=== PATIENT | female | born 1995 | race Caucasian/White ===

== ENCOUNTER → 2023-08-26 | Outpatient (CLI) | payer BC, MEDICARE ==
--- NOTE | 2023-08-26 10:46 | USB ---
Reason for Exam: Clinical finding. Technique: Method: Targeted. Findings: The upper outer quadrant of the left breast, the axilla of the left breast and the retroareolar of the left breast were scanned. Technique utilized:US breast limited LT Image; Ultrasound imaging of: Area of concern, retroareolar region and axilla. No evidence for organizing fluid collection or mass. Overall Assessment: Negative, BI-RAD 1 Management: Screening Mammogram of both breasts at age 41. A clinical breast exam by your physician is recommended on an annual basis and results should be correlated with mammographic findings. This exam should not preclude additional follow-up of suspicious palpable abnormalities. Results were given to the patient verbally at the time of exam. Electronically signed and approved by: Maxime Galeana DO
== END | disposition home or self-care (01) ==
LOC: RADUSWWP 10:18
PROVIDERS: ATTEND Family Medicine
DX: N63.20 Unspecified lump in the left breast, unspecified quadrant (principal)

== ENCOUNTER 2023-12-24 03:05 | Inpatient (IN) | payer BC ==
[2023-12-24] MEDS: METOCLOPRAMIDE 5 MG/ML 2 ML VIAL IVP STA (03:45)
[2023-12-24] MEDS: SODIUM CHLORIDE 0.9% 1,000 ML IV STA (03:46)
--- NOTE | 2023-12-24 03:46 | ED ---
Abdominal Pain HPI - General Source: patient Mode of arrival: ambulatory Limitations: no limitations <Dru Arana - Last Filed: 12/24/23 19:06> <Janine Montemayor - Last Filed: 12/24/23 23:19> - General Chief Complaint: Abdominal Pain Stated Complaint: Abd pain Time Seen by Provider: 12/24/23 03:19 - History of Present Illness Initial Comments: 28-year-old female presenting with chief complaint of right upper quadrant pain. Patient is currently 22 weeks . Patient has had sharp pain to the right upper quadrant has a known history of gallstones. She has not been able to control the pain with medications at home. She is having no lower abdominal pain or vaginal bleeding. She is having nausea with no vomiting. She admits to diarrhea. She is also having URI-like symptoms. (Dru Arana) Patient originally seen by midlevel provider. Patient was signed out to me pending laboratory studies. I evaluated the patient myself. She reports to having a known diagnosis of gallbladder sludge. She has had 3-4 episodes of acute pain. The last episode was 3 weeks ago. Patient is currently not on any medications for the symptoms. She had sudden onset of pain a few hours prior to coming into the hospital. States that she was trying to wait it out at home however this episode lasted longer than any of the others. She has nausea without vomiting. Patient is currently 22 weeks and denies any lower abdominal symptoms. No bleeding. Denies any headache or visual changes. No history of hypertension. No other alleviating, precipitating modifying factors (Janine Montemayor) - Related Data Home Medications Medication Instructions Recorded Confirmed Aspirin EC [Ecotrin Low Dose] 81 mg PO DAILY 12/24/23 12/24/23 Bpo-Xmvh-Csyco Acid 1 cap PO DAILY 12/24/23 12/24/23 [-U Capsule (formulary)] Vitamin D3(Unknown Dose) 1 tab PO DAILY 12/24/23 12/24/23 Allergies Allergy/AdvReac Type Severity Reaction Status Date / Time No Known Allergies Allergy Verified 12/24/23 09:24 Review of Systems ROS Other: All systems not noted in ROS Statement are negative. <Dru Arana - Last Filed: 12/24/23 19:06> ROS Other: All systems not noted in ROS Statement are negative. <Janine Montemayor Carmelita - Last Filed: 12/24/23 23:19> ROS Statement: Those systems with pertinent positive or pertinent negative responses have been documented in the HPI. Past Medical History Past Medical History: No Reported History History of Any Multi-Drug Resistant Organisms: None Reported Past Surgical History: No Surgical Hx Reported Smoking Status: Never smoker Past Alcohol Use History: None Reported Past Drug Use History: None Reported - Past Family History Mother Family Medical History: No Reported History <Dru Arana - Last Filed: 12/24/23 19:06> General Exam Limitations: no limitations General appearance: alert, in no apparent distress Head exam: Present: atraumatic, normocephalic Eye exam: Present: normal appearance, EOMI Neck exam: Present: normal inspection Respiratory exam: Present: normal lung sounds bilaterally. Absent: respiratory distress, wheezes, rales, rhonchi, stridor Cardiovascular Exam: Present: regular rate, normal rhythm, normal heart sounds. Absent: systolic murmur, diastolic murmur, rubs, gallop, clicks GI/Abdominal exam: Present: soft, tenderness. Absent: distended, guarding, rebound, rigid Neurological exam: Present: alert, oriented X3 Psychiatric exam: Present: normal affect, normal mood Skin exam: Present: warm, dry <Dru Arana - Last Filed: 12/24/23 19:06> Course Vital Signs 12/24/23 12/24/23 12/24/23 03:07 04:16 04:46 Temperature 97.3 F L Pulse Rate 99 72 Respiratory 22 16 Rate Blood Pressure 143/97 130/84 O2 Sat by Pulse 100 100 98 Oximetry 12/24/23 12/24/23 12/24/23 04:52 05:00 05:25 Temperature Pulse Rate 94 82 Respiratory 16 17 Rate Blood Pressure 111/72 111/72 119/80 O2 Sat by Pulse 98 100 Oximetry 12/24/23 12/24/23 12/24/23 06:00 06:47 07:00 Temperature Pulse Rate 84 Respiratory 17 Rate Blood Pressure 125/90 125/85 125/85 O2 Sat by Pulse 95 Oximetry 12/24/23 12/24/23 08:00 09:00 Temperature Pulse Rate 83 Respiratory 17 Rate Blood Pressure 119/69 117/73 O2 Sat by Pulse 98 Oximetry Medical Decision Making - Lab Data Result diagrams: 12/24/23 03:37 12/24/23 03:37 <Dru Arana - Last Filed: 12/24/23 19:06> - Lab Data Result diagrams: 12/24/23 03:37 12/24/23 03:37 <Janine Montemayor Carmelita - Last Filed: 12/24/23 23:19> - Medical Decision Making Was pt. sent in by a medical professional or institution (, PA, PRIMARY CARE NURSE PRACTITIONER, urgent care, hospital, or [facility]...) When possible be specific @ -No Did you speak to anyone other than the patient for history (EMS, parent, family, police, friend...)? What history was obtained from this source @ -No Did you review nursing and triage notes (agree or disagree)? Why? @ -I reviewed and agree with nursing and triage notes Were old charts reviewed (outside hosp., previous admission, EMS record, old EKG, old radiological studies, urgent care reports/EKG's, [facility] records)? Report findings @ -No old charts were reviewed Differential Diagnosis (chest pain, altered mental status, abdominal pain women, abdominal pain men, vaginal bleeding, weakness, fever, dyspnea, syncope, headache, dizziness, GI bleed, back pain, seizure, CVA, palpatations, mental health, musculoskeletal)? @ -Differential Abdominal Pain Women: Appendicitis, Cholecystitis, diverticulosis, ischemic bowel, pancreatitis, hepatitis, UTI, gastroenteritis, AAA, incarcerated hernia, bowel obstruction, constipation, inflammatory bowel, hepatitis, peptic ulcer disease, splenic infarction, perforated viscus, vulvitis, ovarian torsion, PID, kidney stone, placenta abruption, this is not meant to be an all-inclusive list EKG interpreted by me (3pts min.). @ -Not done X-rays interpreted by me (1pt min.). @ -None done CT interpreted by me (1pt min.). @ -None done U/S interpreted by me (1pt. min.). @ -Yes and demonstrates signs of possible acute cholecystitis. Gallbladder wall is thickened. Biliary sludge What testing was considered but not performed or refused? (CT, X-rays, U/S, labs)? Why? @ -None What meds were considered but not given or refused? Why? @ -None Did you discuss the management of the patient with other professionals (professionals i.e. DrMihir, PA, PRIMARY CARE NURSE PRACTITIONER, lab, RT, psych nurse, social worker delinquency prevention, jig hand, teacher, peace officer, pillowcase maker)? Give summary @ -Spoke with Dr. Carvalho who is agreeable to admit the patient Was smoking cessation discussed for >3mins.? @ -No Was critical care preformed (if so, how long)? @ -No Were there social determinants of health that impacted care today? How? (Homelessness, low income, unemployed, alcoholism, drug addiction, transportation, low edu. Level, literacy, decrease access to med. care, retirement, rehab)? @ -Patient is currently in her second trimester of Was there de-escalation of care discussed even if they declined (Discuss DNR or withdrawal of care, Hospice)? DNR status @ -No What co-morbidities impacted this encounter? (DM, HTN, Smoking, COPD, CAD, Cancer, CVA, ARF, Chemo, Hep., AIDS, mental health diagnosis, sleep apnea, morbid obesity)? @ -None Was patient admitted / discharged? Hospital course, mention meds given and route, prescriptions, significant lab abnormalities, going to OR and other pertinent info. @ -Upon arrival patient was seen and evaluated in room 14. Thorough history and physical exam was performed. IV access was established and laboratory studies are conducted. Patient is in a significant amount of pain. She was given 4 mg of morphine after the risks of the medication were discussed with the patient in regards to her unborn baby. She was agreeable to pain meds. While the laboratory studies are running, the patient continues to have pain and therefore was given a second dose of pain medications. Laboratory studies returned and are discussed with the patient. I do feel that the patient to have a gallbladder ultrasound at this time for which she was agreeable. Patient administered third dose of pain medication however was given 1 mg of Dilaudid as the 2 doses of morphine did not suffice. Ultrasound does demonstrate acute cholecystitis. There is some right-sided hydronephrosis which is likely normal considering that the patient is in second trimester . Patient does require surgical evaluation for cholecystitis. Patient is requesting Dr. Carvalho. Dr. Carvalho is not on-call but is agreeable to consult on the patient. He does give several treatment options. I did discuss these with the patient. She was agreeable to admission to our facility on antibiotics. Dr. Carvalho will take the admission with DAM TENDER ASSISTANT to consult. I did perform a bedside ultrasound which did demonstrate positive heart tones and movement. Patient was admitted to the floor in stable condition Undiagnosed new problem with uncertain prognosis? @ -Yes Drug Therapy requiring intensive monitoring for toxicity (Heparin, Nitro, Insulin, Cardizem)? @ -No Were any procedures done? @ -Bedside obstetric ultrasound Diagnosis/symptom? @ -Acute right upper quadrant abdominal pain, acute cholecystitis, second trimester Acute, or Chronic, or Acute on Chronic? @ -Acute Uncomplicated (without systemic symptoms) or Complicated (systemic symptoms)? @ -Complicated Side effects of treatment? @ -No Exacerbation, Progression, or Severe Exacerbation? @ -No Poses a threat to life or bodily function? How? (Chest pain, [place], VA, pneumonia, PE, COPD, DKA, ARF, appy, cholecystitis, CVA, Diverticulitis, Homicidal, Suicidal, threat to staff... and all critical care pts) @ -No (Janine Montemayor) - Lab Data Lab Results 12/24/23 12/24/23 12/24/23 Range/Units 03:37 03:37 03:37 WBC 11.2 H (3.8-10.6) k/uL RBC 4.17 (3.80-5.40) m/uL Hgb 12.7 (11.4-16.0) gm/dL Hct 38.2 (34.0-46.0) % MCV 91.5 (80.0-100.0) fL MCH 30.5 (25.0-35.0) pg MCHC 33.3 (31.0-37.0) g/dL RDW 12.6 (11.5-15.5) % Plt Count 262 (150-450) k/uL MPV 7.9 Neutrophils % 81 % Lymphocytes % 13 % Monocytes % 5 % Eosinophils % 1 % Basophils % 0 % Neutrophils # 9.0 H (1.3-7.7) k/uL Lymphocytes # 1.4 (1.0-4.8) k/uL Monocytes # 0.5 (0-1.0) k/uL Eosinophils # 0.1 (0-0.7) k/uL Basophils # 0.0 (0-0.2) k/uL Sodium 135 L (137-145) mmol/L Potassium 3.8 (3.5-5.1) mmol/L Chloride 104 (98-107) mmol/L Carbon Dioxide 20 L (22-30) mmol/L Anion Gap 11 mmol/L BUN 5 L (7-17) mg/dL Creatinine 0.47 L (0.52-1.04) mg/dL Est GFR (CKD-EPI)AfAm >90 (>60 ml/min/1.73 sqM) Est GFR (CKD-EPI)NonAf >90 (>60 ml/min/1.73 sqM) Glucose 128 H (74-99) mg/dL Plasma Lactic Acid Perry (0.7-2.0) mmol/L Uric Acid 4.3 (3.7-7.4) mg/dL Calcium 8.8 (8.4-10.2) mg/dL Total Bilirubin 0.7 (0.2-1.3) mg/dL AST 38 H (14-36) U/L ALT 22 (4-34) U/L Alkaline Phosphatase 81 (38-126) U/L Lactate Dehydrogenase 350 H (120-246) U/L Total Protein 7.5 (6.3-8.2) g/dL Albumin 4.0 (3.5-5.0) g/dL Amylase 59 (30-110) U/L Lipase 71 (23-300) U/L Urine Color Yellow Urine Appearance Cloudy H (Clear) Urine pH 6.0 (5.0-8.0) Ur Specific [place] 1.030 (1.001-1.035) Urine Protein 1+ H (Negative) Urine Glucose (UA) Trace H (Negative) Urine Ketones Negative (Negative) Urine Blood Negative (Negative) Urine Nitrite Negative (Negative) Urine Bilirubin Negative (Negative) Urine Urobilinogen 2.0 (<2.0) mg/dL Ur Leukocyte Esterase Negative (Negative) Urine WBC 3 (0-5) /hpf Ur Squamous Epith Cells 13 H (0-4) /hpf Calcium Oxalate Crystal Moderate H (None) /hpf Urine Bacteria Moderate H (None) /hpf Hyaline Casts 10 H (0-2) /lpf Urine Mucus Many H (None) /hpf Influenza Type A (PCR) (Not Detectd) Influenza Type B (PCR) (Not Detectd) RSV (PCR) (Not Detectd) SARS-CoV-2 (PCR) (Not Detectd) 12/24/23 12/24/23 Range/Units 03:37 03:39 WBC (3.8-10.6) k/uL RBC (3.80-5.40) m/uL Hgb (11.4-16.0) gm/dL Hct (34.0-46.0) % MCV (80.0-100.0) fL MCH (25.0-35.0) pg MCHC (31.0-37.0) g/dL RDW (11.5-15.5) % Plt Count (150-450) k/uL MPV Neutrophils % % Lymphocytes % % Monocytes % % Eosinophils % % Basophils % % Neutrophils # (1.3-7.7) k/uL Lymphocytes # (1.0-4.8) k/uL Monocytes # (0-1.0) k/uL Eosinophils # (0-0.7) k/uL Basophils # (0-0.2) k/uL Sodium (137-145) mmol/L Potassium (3.5-5.1) mmol/L Chloride (98-107) mmol/L Carbon Dioxide (22-30) mmol/L Anion Gap mmol/L BUN (7-17) mg/dL Creatinine (0.52-1.04) mg/dL Est GFR (CKD-EPI)AfAm (>60 ml/min/1.73 sqM) Est GFR (CKD-EPI)NonAf (>60 ml/min/1.73 sqM) Glucose (74-99) mg/dL Plasma Lactic Acid Perry 1.5 (0.7-2.0) mmol/L Uric Acid (3.7-7.4) mg/dL Calcium (8.4-10.2) mg/dL Total Bilirubin (0.2-1.3) mg/dL AST (14-36) U/L ALT (4-34) U/L Alkaline Phosphatase (38-126) U/L Lactate Dehydrogenase (120-246) U/L Total Protein (6.3-8.2) g/dL Albumin (3.5-5.0) g/dL Amylase (30-110) U/L Lipase (23-300) U/L Urine Color Urine Appearance (Clear) Urine pH (5.0-8.0) Ur Specific [place] (1.001-1.035) Urine Protein (Negative) Urine Glucose (UA) (Negative) Urine Ketones (Negative) Urine Blood (Negative) Urine Nitrite (Negative) Urine Bilirubin (Negative) Urine Urobilinogen (<2.0) mg/dL Ur Leukocyte Esterase (Negative) Urine WBC (0-5) /hpf Ur Squamous Epith Cells (0-4) /hpf Calcium Oxalate Crystal (None) /hpf Urine Bacteria (None) /hpf Hyaline Casts (0-2) /lpf Urine Mucus (None) /hpf Influenza Type A (PCR) Not Detected (Not Detectd) Influenza Type B (PCR) Not Detected (Not Detectd) RSV (PCR) Not Detected (Not Detectd) SARS-CoV-2 (PCR) Not Detected (Not Detectd) Disposition <Dru Arana - Last Filed: 12/24/23 19:06> Is patient prescribed a controlled substance at d/c from ED?: No Time of Disposition: 09:04 Decision to Admit Reason: Admit from EC Decision Date: 12/24/23 Decision Time: 09:04 <Janine Montemayor - Last Filed: 12/24/23 23:19> Clinical Impression: RUQ pain, Second trimester , Acute cholecystitis Disposition: ADMITTED IP TO THIS [facility] Condition: Stable
[2023-12-24] MEDS: MORPHINE SULFATE 2 MG/ML SYRINGE IVP STA (03:49)
[2023-12-24 03:50] LABS: Basophils % (A) 0 %; Eosinophils # (A) 0.1 k/uL (0-0.7); Eosinophils % (A) 1 %; HCT 38.2 % (34.0-46.0); HGB 12.7 gm/dL (11.4-16.0); Lymphocytes # (A) 1.4 k/uL (1.0-4.8); Lymphocytes % (A) 13 %; MCH 30.5 pg (25.0-35.0); MCHC 33.3 g/dL (31.0-37.0); MCV 91.5 fL (80.0-100.0); Mean Platelet Volume 7.9; Monocytes # (A) 0.5 k/uL (0-1.0); Monocytes % (A) 5 %; Neutrophils % (A) 81 %; Platelet Count 262 k/uL (150-450); RBC 4.17 m/uL (3.80-5.40); RDW 12.6 % (11.5-15.5); WBC 11.2 k/uL (3.8-10.6)
[2023-12-24 03:58] LABS: ALT 22 U/L (4-34); AST 38 U/L (14-36); African American GFR (CKD) >90 (>60 ml/min/1.73 sqM); Alkaline Phosphatase 81 U/L (38-126); Amylase 59 U/L (30-110); Anion Gap 11 mmol/L; Blood Urea Nitrogen 5 mg/dL (7-17); Calcium 8.8 mg/dL (8.4-10.2); Carbon Dioxide 20 mmol/L (22-30); Chloride 104 mmol/L (98-107); Glucose 128 mg/dL (74-99); Lipase 71 U/L (23-300); Non-African American GFR(CKD) >90 (>60 ml/min/1.73 sqM); Potassium 3.8 mmol/L (3.5-5.1); Sodium 135 mmol/L (137-145); Total Bilirubin 0.7 mg/dL (0.2-1.3); Total Protein 7.5 g/dL (6.3-8.2); Uric Acid 4.3 mg/dL (3.7-7.4)
[2023-12-24 04:24] LABS: LDH 350 U/L (120-246)
[2023-12-24] MEDS: MORPHINE SULFATE 4 MG/ML SYRINGE IVP STA (04:28)
[2023-12-24] MEDS: HYDROmorphone 1 MG/ML 1 ML SYRINGE IVP STA (05:37)
[2023-12-24 06:12] LABS: Appearance,Urine Cloudy (Clear); Bacteria,Urine Moderate /hpf; Bilirubin,Urine Negative (Negative); Blood,Urine Negative (Negative); Calcium Oxalate Crystals,Urine Moderate /hpf; Color,Urine Yellow; Glucose,Urine (UA) Trace (Negative); Hyaline Casts,Urine 10 /lpf (0-2); Ketones,Urine Negative (Negative); Leukocyte Esterase,Urine Negative (Negative); Mucus,Urine Many /hpf; Nitrite,Urine Negative (Negative); Protein,Urine 1+ (Negative); Squamous Epithelial Cell,Urine 13 /hpf (0-4); WBC,Urine 3 /hpf (0-5)
--- NOTE | 2023-12-24 08:10 | US ---
EXAMINATION TYPE: US gallbladder DATE OF EXAM: 12/24/2023 COMPARISON: NONE CLINICAL INDICATION: Female, 28 years old with history of ruq pain; RUQ pain since 11:30 pm, Hx of ga llbladder sludge. Patient is 22 weeks . TECHNIQUE: Multiple sonographic images of the right upper quadrant are obtained. FINDINGS: EXAM MEASUREMENTS: Liver Length: 16.6 cm Gallbladder Wall: 0.41 cm CBD: Obscured Right Kidney: 12.7 x 6.6 x 4.9 cm VENDING MACHINE SERVICER NOTES: Exam is limited due to gas. Pancreas: Pancreatic tail was not well seen. Liver: Appears wnl Gallbladder: Gallbladder appears hydropic measuring 11.2 cm in length. *Hyperechoic material with pos terior shadowing visualized within the gallbladder: 3.9 x 1.8 x 0.8 cm. Gallbladder wall appears thickened measuring 0.41 cm. Evidence for sonographic Owens's sign: No CBD: Obscured Right Kidney: *Hydronephrosis was visualized. Kidney appears slightly enlarged. IMPRESSION: 1. Clinical correlation recommended for acute cholecystitis. 2. Moderate right hydronephrosis. 3. Minimal hepatomegaly
[2023-12-24] MEDS ORDERED: MORPHINE SULFATE 4 MG/ML SYRINGE IV PRN (09:04)
[2023-12-24] MEDS ORDERED: NALOXONE 0.4 MG/ML 1 ML VIAL IV PRN (09:04)
[2023-12-24] MEDS ORDERED: ONDANSETRON 4 MG/2 ML VIAL IVP PRN (09:04)
[2023-12-24] MEDS: AMPICILLIN-SULBACTAM 3 GM in SODIUM CHLORIDE 0.9% 100 ML IVPB STA (09:33)
[2023-12-24] MEDS: SODIUM CHLORIDE 0.9% 1,000 ML IV SCH (10:00)
--- NOTE | 2023-12-24 14:43 | P.GSHP ---
History of Present Illness H&P Date: 12/24/23 Chief Complaint: Right upper quadrant pain 28-year-old female comes to the ER with complaints of right upper quadrant pain. Pain radiates to the back. Pain began around 11:00 last night. This is her third or fourth episode of pain similar to this. Usually it lasts only for an hour or so. Because of the persistent pain she came to the hospital. When she has these episodes she sometimes has nausea. No vomiting. No fevers. Denies any change in the color of her skin urine or stool. No dysuria. White blood cell count mildly elevated. Remainder of labs fairly unimpressive. Ultrasound shows gallstones with mild gallbladder wall thickening. Patient also has right- sided hydronephrosis. Patient is 22 weeks currently. - Review of Systems Comment: The patient denies any acute changes in vision or hearing, no dysphagia or odynophagia, no chest pain or shortness of breath, no dysuria or hematuria, no headache, no runny nose, no rectal bleeding or melena, no unexplained weight loss Past Medical History Past Medical History: No Reported History History of Any Multi-Drug Resistant Organisms: None Reported Past Surgical History: Adenoidectomy, Tonsillectomy Additional Past Surgical History / Comment(s): 2004 Past Anesthesia/Blood Transfusion Reactions: No Reported Reaction Past Psychological History: No Psychological Hx Reported Smoking Status: Never smoker Past Alcohol Use History: None Reported Past Drug Use History: None Reported - Past Family History Mother Family Medical History: No Reported History Medications and Allergies Home Medications Medication Instructions Recorded Confirmed Type Aspirin EC [Ecotrin Low Dose] 81 mg PO DAILY 12/24/23 12/24/23 History Aay-Ysew-Dmgqv Acid 1 cap PO DAILY 12/24/23 12/24/23 History [-U Capsule (formulary)] Vitamin D3(Unknown Dose) 1 tab PO DAILY 12/24/23 12/24/23 History Allergies Allergy/AdvReac Type Severity Reaction Status Date / Time No Known Allergies Allergy Verified 12/24/23 09:24 Surgical - Exam Vital Signs Temp Pulse Resp BP Pulse Ox 97.3 F L 99 22 143/97 100 12/24/23 03:07 12/24/23 03:07 12/24/23 03:07 12/24/23 03:07 12/24/23 03:07 Physical exam: General: Well-developed, well-nourished HEENT: Normocephalic, sclerae nonicteric Abdomen: Nontender, nondistended Extremities: No edema Neuro: Alert and oriented Results - Labs 12/24/23 03:37 12/24/23 03:37 Abnormal Lab Results - Last 24 Hours (Table) 12/24/23 12/24/23 12/24/23 Range/Units 03:37 03:37 03:37 WBC 11.2 H (3.8-10.6) k/uL Neutrophils # 9.0 H (1.3-7.7) k/uL Sodium 135 L (137-145) mmol/L Carbon Dioxide 20 L (22-30) mmol/L BUN 5 L (7-17) mg/dL Creatinine 0.47 L (0.52-1.04) mg/dL Glucose 128 H (74-99) mg/dL AST 38 H (14-36) U/L Lactate Dehydrogenase 350 H (120-246) U/L Urine Appearance Cloudy H (Clear) Urine Protein 1+ H (Negative) Urine Glucose (UA) Trace H (Negative) Ur Squamous Epith Cells 13 H (0-4) /hpf Calcium Oxalate Crystal Moderate H (None) /hpf Urine Bacteria Moderate H (None) /hpf Hyaline Casts 10 H (0-2) /lpf Urine Mucus Many H (None) /hpf Diabetes panel 12/24/23 Range/Units 03:37 Sodium 135 L (137-145) mmol/L Potassium 3.8 (3.5-5.1) mmol/L Chloride 104 (98-107) mmol/L Carbon Dioxide 20 L (22-30) mmol/L BUN 5 L (7-17) mg/dL Creatinine 0.47 L (0.52-1.04) mg/dL Glucose 128 H (74-99) mg/dL Calcium 8.8 (8.4-10.2) mg/dL AST 38 H (14-36) U/L ALT 22 (4-34) U/L Alkaline Phosphatase 81 (38-126) U/L Total Protein 7.5 (6.3-8.2) g/dL Albumin 4.0 (3.5-5.0) g/dL Calcium panel 12/24/23 Range/Units 03:37 Calcium 8.8 (8.4-10.2) mg/dL Albumin 4.0 (3.5-5.0) g/dL Pituitary panel 12/24/23 Range/Units 03:37 Sodium 135 L (137-145) mmol/L Potassium 3.8 (3.5-5.1) mmol/L Chloride 104 (98-107) mmol/L Carbon Dioxide 20 L (22-30) mmol/L BUN 5 L (7-17) mg/dL Creatinine 0.47 L (0.52-1.04) mg/dL Glucose 128 H (74-99) mg/dL Calcium 8.8 (8.4-10.2) mg/dL Adrenal panel 12/24/23 Range/Units 03:37 Sodium 135 L (137-145) mmol/L Potassium 3.8 (3.5-5.1) mmol/L Chloride 104 (98-107) mmol/L Carbon Dioxide 20 L (22-30) mmol/L BUN 5 L (7-17) mg/dL Creatinine 0.47 L (0.52-1.04) mg/dL Glucose 128 H (74-99) mg/dL Calcium 8.8 (8.4-10.2) mg/dL Total Bilirubin 0.7 (0.2-1.3) mg/dL AST 38 H (14-36) U/L ALT 22 (4-34) U/L Alkaline Phosphatase 81 (38-126) U/L Total Protein 7.5 (6.3-8.2) g/dL Albumin 4.0 (3.5-5.0) g/dL Assessment and Plan (1) Acute cholecystitis Narrative/Plan: 28-year-old female with right upper quadrant pain and ultrasound findings suggesting possible mild acute cholecystitis. Discussed with patient that her symptoms are somewhere between biliary colic and acute cholecystitis. Will be gin IV antibiotics. Discussed options of cholecystectomy. Because the patient's symptoms have resolved it is reasonable to consider observation with short course of antibiotics postdischarge. Certainly if acute cholecystitis remains an active diagnosis then cholecystectomy despite her active would be a viable option. Associated risks of surgery both related and none related discussed in detail. Continue clear liquids. Recheck labs and clinical exam tomorrow. OB consult placed. Patient with right-sided hydronephrosis. This may likely be physiologic based on . Will defer decision regarding urology consult to OB. Current Visit: Yes Status: Acute Code(s): K81.0 - ACUTE CHOLECYSTITIS SNOMED Code(s): 63675509
[2023-12-24] MEDS: AMPICILLIN-SULBACTAM 3 GM in SODIUM CHLORIDE 0.9% 100 ML IVPB SCH (16:51)
[2023-12-24] MEDS: ACETAMINOPHEN TAB 500 MG TAB PO PRN (17:32)
--- NOTE | 2023-12-24 17:45 | P.OBCN ---
History of Present Illness Consult date: 12/24/23 Reason for consult: other (, 22 weeks) Chief complaint: RUQ pain, cholelithiasis History of present illness: 28 year old presented to ER at 22 weeks with RUQ pain. She was admitted by Gen Surgery for antibiotics, fluids, pain medication and observation. I was consulted because she is . She does have some right hydronephrosis which is normal in . Her pain is controlled right now with Tylenol. heart tones are 140s. Fundus is soft and her uterus is nontender Review of Systems All systems: negative Constitutional: Denies chills, Denies fever Eyes: denies blurred vision, denies pain Ears, nose, mouth and throat: Denies headache, Denies sore throat Cardiovascular: Denies chest pain, Denies shortness of breath Respiratory: Denies cough Gastrointestinal: Denies abdominal pain, Denies diarrhea, Denies nausea, Denies vomiting Genitourinary: Denies dysuria, Denies hematuria Musculoskeletal: Denies myalgias Integumentary: Denies pruritus, Denies rash Neurological: Denies numbness, Denies weakness Psychiatric: Denies anxiety, Denies depression Endocrine: Denies fatigue, Denies weight change Past Medical History Past Medical History: No Reported History History of Any Multi-Drug Resistant Organisms: None Reported Past Surgical History: Adenoidectomy, Tonsillectomy Additional Past Surgical History / Comment(s): 2004 Past Anesthesia/Blood Transfusion Reactions: No Reported Reaction Past Psychological History: No Psychological Hx Reported Smoking Status: Never smoker Past Alcohol Use History: None Reported Past Drug Use History: None Reported - Past Family History Mother Family Medical History: No Reported History Medications and Allergies Home Medications Medication Instructions Recorded Confirmed Type Aspirin EC [Ecotrin Low Dose] 81 mg PO DAILY 12/24/23 12/24/23 History Ibi-Zahu-Nrlgo Acid 1 cap PO DAILY 12/24/23 12/24/23 History [-U Capsule (formulary)] Vitamin D3(Unknown Dose) 1 tab PO DAILY 12/24/23 12/24/23 History Allergies Allergy/AdvReac Type Severity Reaction Status Date / Time No Known Allergies Allergy Verified 12/24/23 09:24 Exam Osteopathic Statement: *. No significant issues noted on an osteopathic structural exam other than those noted in the History and Physical/Consult. Vital Signs Temp Pulse Pulse Resp BP BP Pulse Ox 12/24/23 16:30 98.1 F 92 16 117/80 98 12/24/23 12:00 98.1 F 88 16 113/74 99 12/24/23 10:07 98.0 F 18 132/92 99 12/24/23 09:00 83 17 117/73 98 12/24/23 08:00 119/69 12/24/23 07:00 125/85 12/24/23 06:47 84 17 125/85 95 12/24/23 06:00 125/90 12/24/23 05:25 82 17 119/80 100 12/24/23 05:00 111/72 12/24/23 04:52 94 16 111/72 98 12/24/23 04:46 98 12/24/23 04:16 72 16 130/84 100 12/24/23 03:07 97.3 F L 99 22 143/97 100 Intake and Output 12/24/23 12/24/23 12/24/23 06:59 14:59 22:59 Other: # Voids 1 2 Weight 87.09 kg 87.09 kg Heart: Regular rate and rhythm Lungs: Clear to auscultation bilaterally Abdomen: Soft, nontender Extremities: Negative Homans sign Results Result Diagrams: 12/24/23 03:37 12/24/23 03:37 Abnormal Lab Results - Last 24 Hours (Table) 12/24/23 12/24/23 12/24/23 Range/Units 03:37 03:37 03:37 WBC 11.2 H (3.8-10.6) k/uL Neutrophils # 9.0 H (1.3-7.7) k/uL Sodium 135 L (137-145) mmol/L Carbon Dioxide 20 L (22-30) mmol/L BUN 5 L (7-17) mg/dL Creatinine 0.47 L (0.52-1.04) mg/dL Glucose 128 H (74-99) mg/dL AST 38 H (14-36) U/L Lactate Dehydrogenase 350 H (120-246) U/L Urine Appearance Cloudy H (Clear) Urine Protein 1+ H (Negative) Urine Glucose (UA) Trace H (Negative) Ur Squamous Epith Cells 13 H (0-4) /hpf Calcium Oxalate Crystal Moderate H (None) /hpf Urine Bacteria Moderate H (None) /hpf Hyaline Casts 10 H (0-2) /lpf Urine Mucus Many H (None) /hpf Assessment and Plan (1) Acute cholecystitis Current Visit: Yes Status: Acute Code(s): K81.0 - ACUTE CHOLECYSTITIS SNOMED Code(s): 31721405 (2) RUQ pain Current Visit: Yes Status: Acute Code(s): R10.11 - RIGHT UPPER QUADRANT PAIN SNOMED Code(s): 693412276 (3) Second trimester Current Visit: Yes Status: Acute Code(s): Z34.92 - ENCNTR FOR SUPRVSN OF NORMAL PREG, UNSP, SECOND TRIMESTER SNOMED Code(s): 23757266 Plan: 1. Pain medication as necessary 2. We did discuss the risks and benefits of surgery during a 22 week . Whether surgery is necessary will be determined by general surgery and the patient. 3. Doppler heart tones daily
[2023-12-25 07:50] LABS: Basophils % (A) 1 %; Eosinophils # (A) 0.2 k/uL (0-0.7); Eosinophils % (A) 3 %; HCT 33.9 % (34.0-46.0); HGB 11.3 gm/dL (11.4-16.0); Lymphocytes # (A) 1.8 k/uL (1.0-4.8); Lymphocytes % (A) 30 %; MCH 30.3 pg (25.0-35.0); MCHC 33.2 g/dL (31.0-37.0); MCV 91.2 fL (80.0-100.0); Mean Platelet Volume 7.2; Monocytes # (A) 0.3 k/uL (0-1.0); Monocytes % (A) 5 %; Neutrophils # (A) 3.7 k/uL (1.3-7.7); Neutrophils % (A) 60 %; Platelet Count 247 k/uL (150-450); RBC 3.72 m/uL (3.80-5.40); RDW 12.7 % (11.5-15.5); WBC 6.1 k/uL (3.8-10.6)
[2023-12-25 08:04] LABS: ALT 63 U/L (4-34); AST 48 U/L (14-36); African American GFR (CKD) >90 (>60 ml/min/1.73 sqM); Albumin 2.9 g/dL (3.5-5.0); Alkaline Phosphatase 104 U/L (38-126); Anion Gap 7 mmol/L; Blood Urea Nitrogen 3 mg/dL (7-17); Calcium 8.2 mg/dL (8.4-10.2); Carbon Dioxide 22 mmol/L (22-30); Chloride 111 mmol/L (98-107); Glucose 88 mg/dL (74-99); Non-African American GFR(CKD) >90 (>60 ml/min/1.73 sqM); Potassium 3.6 mmol/L (3.5-5.1); Sodium 140 mmol/L (137-145); Total Bilirubin 0.4 mg/dL (0.2-1.3); Total Protein 5.7 g/dL (6.3-8.2)
--- NOTE | 2023-12-25 12:09 | P.PN ---
Subjective Progress Note Date: 12/25/23 Principal diagnosis: Acute cholecystitis Patient says she is not having severe pain today unless she is ambulating. When she is moving around the room and walking she says she feels mild right upper quadrant pain. Her white blood cell count is normal. No fevers. ALT and AST slightly increased today. No nausea or vomiting. She has been n.p.o. since we were deciding upon surgery today. Objective - Vital Signs Vital signs: Vital Signs Temp 98.2 F 12/25/23 08:00 Pulse 79 12/25/23 08:00 Resp 16 12/25/23 08:00 BP 110/76 12/25/23 08:00 Pulse Ox 98 12/25/23 08:00 FiO2 Intake & Output 12/24/23 12/25/23 12/25/23 18:59 06:59 18:59 Weight 87.09 kg Other: # Voids 2 2 - Exam Abdomen: Soft, minimal right upper quadrant tenderness, no rebound or guarding - Labs CBC & Chem 7: 12/25/23 07:19 12/25/23 07:19 Labs: Abnormal Lab Results - Last 24 Hours (Table) 12/25/23 12/25/23 Range/Units 07:19 07:19 RBC 3.72 L (3.80-5.40) m/uL Hgb 11.3 L (11.4-16.0) gm/dL Hct 33.9 L (34.0-46.0) % Chloride 111 H (98-107) mmol/L BUN 3 L (7-17) mg/dL Creatinine 0.50 L (0.52-1.04) mg/dL Calcium 8.2 L (8.4-10.2) mg/dL AST 48 H (14-36) U/L ALT 63 H (4-34) U/L Total Protein 5.7 L (6.3-8.2) g/dL Albumin 2.9 L (3.5-5.0) g/dL Assessment and Plan (1) Acute cholecystitis Narrative/Plan: 28-year-old female with acute cholecystitis. Patient is not symptom-free. She and I discussed the options of proceeding with cholecystectomy at this time. Certainly there are risks whether we proceed with surgery or continue with observation. Patient is very worried about having future attacks. Standard of care at this point would favor laparoscopic, possible open cholecystectomy despite her 22 weeks gestation. Patient states she would rather proceed with surgery at this time and then risk further attacks in the future. I believe that is reasonable and in the patient's best interest. Risks of bleeding, infection, bile leak, bile duct injury, retained common bile duct stone, trocar injury, conversion to an open procedure, labor, demise, illness, hernia, anesthesia related complications were reviewed. The patient understands and wishes to proceed. Current Visit: Yes Status: Acute Code(s): K81.0 - ACUTE CHOLECYSTITIS SNOMED Code(s): 96399198
[2023-12-25] MEDS: LACTATED RINGERS 1,000 ML IV ONE (16:20)
[2023-12-25] MEDS: ONDANSETRON 4 MG/2 ML VIAL IVP ONE (16:46)
[2023-12-26] MEDS: LACTATED RINGERS 1,000 ML IV ONE ×2 (11:31→13:12)
[2023-12-26] MEDS: BUPIVACAINE (PF) 0.25% 30 ML VIAL SQ ONE ×3 (12:41→13:11)
[2023-12-26] MEDS ORDERED: ePHEDrine 50 MG/ML 1 ML VIAL ONE (12:46)
[2023-12-26] MEDS ORDERED: PROPOFOL 10 MG/ML 20 ML VIAL IV ONE (12:46)
[2023-12-26] MEDS ORDERED: fentaNYL (PF) 50 MCG/ML 2 ML AMP ONE (12:46)
[2023-12-26] MEDS: SODIUM CHLORIDE 0.9% 100 ML with ceFAZolin 2,000 MG IV ONE (12:46)
[2023-12-26] MEDS ORDERED: ROCURONIUM 10 MG/ML (5 ML VIAL) IV ONE (12:46)
[2023-12-26] MEDS ORDERED: SUCCINYLCHOLINE CHLORIDE 200 MG/10 ML VIAL IV ONE (12:46)
[2023-12-26] MEDS ORDERED: SUGAMMADEX SODIUM 200 MG/2 ML SDV IV ONE (12:46)
[2023-12-26] MEDS ORDERED: HYDROmorphone (PF) 1 MG/ML ONE (12:46)
[2023-12-26] MEDS ORDERED: LIDOCAINE 1% INJ 10MG/ML (20 ML MDV) ONE (12:46)
[2023-12-26] MEDS: HYDROmorphone 0.5 MG/0.5 ML SYRINGE IVP ONE ×2 (15:05→15:30)
[2023-12-26] MEDS ORDERED: HYDROcodone/APAP 5-325MG 1 EACH TAB PO PRN (15:13)
[2023-12-26] MEDS ORDERED: ONDANSETRON 4 MG/2 ML VIAL IVP PRN (15:13)
--- NOTE | 2023-12-26 15:18 | P.OP ---
Date of Procedure: 12/26/23 Procedure(s) Performed: PREOPERATIVE DIAGNOSIS: Acute calculus cholecystitis POSTOPERATIVE DIAGNOSIS: Same PROCEDURE: Laparoscopic cholecystectomy SURGEON: Deven EBL: 10 cc ANESTHESIA: Gen. COMPLICATIONS: None OPERATIVE PROCEDURE: The patient was brought and placed on the operating room table in the supine position. The patient was placed under general anesthesia at that time. The abdomen was prepped and draped in the usual sterile fashion. A horizontal incision was made in the epigastric region. Dissection through the subcutaneous tissues and fascia took place using electrocautery. Blunt dissection occurred next to the falciform ligament until we were in the peritoneal cavity. A 12 mm trocar was placed through that opening. Insufflation took place up to 15 mmHg. The patient's uterus was appropriately sized. There was no free fluid. A 5 mm supra helical trocar was placed under direct visualization. 2 additional 5 mm trochars were placed in the right upper quadrant under direct visualization. The camera was then inserted through the umbilical trocar site. The gallbladder was inspected. It was quite large in length. There was edema of the wall of the gallbladder. No gangrenous changes were seen. The gallbladder was retracted superiorly and laterally. The peritoneum overlying the infundibulum was bluntly dissected. The patient's cystic duct was visualized. The junction between the cystic duct common and hepatic duct was identified. The critical view of safety was achieved after blunt dissection. The cystic duct was then divided after placement of 3 12 mm clips on the patient's side and one on the specimen side. The cystic artery was identified and clipped as well. A small vessel was seen along the gallbladder fossa and clipped as well. The gallbladder was then removed from the liver bed using electrocautery. The gallbladder was then removed from the epigastric trocar site with an Endo Catch bag. The gallbladder fossa was irrigated with saline. There was no evidence of any bleeding or biliary drainage seen. The fascia at the 12 millimeter site was closed using a running 0 Vicryl stitch. The trochars were then removed. The skin at all 4 sites was closed using a 4-0 Monocryl stitch. Skin glue was utilized on the incision sites. At the end of this procedure the sponge and needle counts were correct. DISPOSITION: Stable to the recovery room
[2023-12-26] MEDS: ONDANSETRON 4 MG/2 ML VIAL IVP ONE (15:30)
[2023-12-26] MEDS: ACETAMINOPHEN IV (For NPO) 1,000 MG in EMPTY BAG 1 BAG IVPB PRN (16:04)
[2023-12-26 18:08] VITALS: RESP 16
[2023-12-26] MEDS: HYDROmorphone 0.5 MG/0.5 ML SYRINGE IVP PRN (18:31)
[2023-12-26] MEDS: HEPARIN SODIUM,PORCINE 5,000 UNIT/ML 1 ML VIAL SQ SCH (18:33)
[2023-12-26] MEDS: HYDROmorphone 1 MG/ML 1 ML SYRINGE IVP PRN (23:31)
[2023-12-27 08:44] LABS: ALT 64 U/L (4-34); AST 50 U/L (14-36); African American GFR (CKD) >90 (>60 ml/min/1.73 sqM); Albumin 3.1 g/dL (3.5-5.0); Alkaline Phosphatase 115 U/L (38-126); Anion Gap 8 mmol/L; Blood Urea Nitrogen <2 mg/dL (7-17); Calcium 8.6 mg/dL (8.4-10.2); Carbon Dioxide 23 mmol/L (22-30); Chloride 106 mmol/L (98-107); Glucose 111 mg/dL (74-99); Non-African American GFR(CKD) >90 (>60 ml/min/1.73 sqM); Potassium 3.1 mmol/L (3.5-5.1); Sodium 137 mmol/L (137-145); Total Bilirubin 0.5 mg/dL (0.2-1.3); Total Protein 5.9 g/dL (6.3-8.2)
[2023-12-27] MEDS: POTASSIUM CHLORIDE ER 20 MEQ TAB.ER PO STA (11:45)
--- NOTE | 2023-12-27 15:30 | P.DS ---
Providers Date of admission: 12/24/23 09:14 Expected date of discharge: 12/27/23 Attending physician: Jorge Carvalho Consults: 12/24/23 09:04 Consult Physician Urgent Consulting Provider: Ananya Moon Consult Reason/Comments: second trimester , acute cholecystitis Do you want consulting provider notified?: Yes Primary care physician: Jose Gonzalez Hospital Course: Discharge diagnosis 1. Acute calculus cholecystitis status post Laparoscopic cholecystectomy. 2. 22 weeks 3. Hypokalemia. Replaced Hospital course 28-year-old female comes to the ER with complaints of right upper quadrant pain. Pain radiates to the back. Ultrasound shows gallstones with mild gallbladder wall thickening. Patient is status post Laparoscopic cholecystectomy. She is tolerating diet. Pain is controlled. She is having flatus. Afebrile. Ambulating. Incision sites clean, dry and intact. Patient is stable for discharge. Physician Sub Master note has been reviewed by physician. Signing provider agrees with the documented findings, assessment, and plan of care. Patient Condition at Discharge: Stable Plan - Discharge Summary Discharge Rx Participant: Yes New Discharge Prescriptions: New Acetaminophen Tab [Tylenol] 1,000 mg PO Q6HR PRN #30 tablet PRN Reason: Pain Continue Vyg-Toaf-Cemuj Acid [-U Capsule (formulary)] 1 cap PO DAILY Aspirin EC [Ecotrin Low Dose] 81 mg PO DAILY Vitamin D3(Unknown Dose) 1 tab PO DAILY Discharge Medication List Aspirin EC [Ecotrin Low Dose] 81 mg PO DAILY 12/24/23 [History] Urh-[id number] Acid [-U Capsule (formulary)] 1 cap PO DAILY 12/24/23 [History] Vitamin D3(Unknown Dose) 1 tab PO DAILY 12/24/23 [History] Acetaminophen Tab [Tylenol] 1,000 mg PO Q6HR PRN #30 tablet 12/27/23 [Rx] Follow up Appointment(s)/Referral(s): Jorge Carvalho MD [Medical Doctor] - 1 Week Jose Gonzalez DO [Primary Care Provider] - 1-2 days Discharge Disposition: HOME SELF-CARE
[2023-12-27 17:27] VITALS: BP 133/84; PULSE 77; TEMP 98
== END 2023-12-27 16:15 | disposition home or self-care (01) | DRG 818 ==
LOC: EC 03:05 → 4FBP 09:14
PROVIDERS: ADMIT Surgery; ATTEND Surgery
PROC: 0FT44ZZ Resection of Gallbladder, Percutaneous Endoscopic Approach (ICD-10-PCS; principal; 2023-12-24)
DX: O99.612 Diseases of the digestive system complicating pregnancy, second trimester (principal); Z11.52 Encounter for screening for COVID-19; K80.00 Calculus of gallbladder with acute cholecystitis without obstruction; O99.332 Smoking (tobacco) complicating pregnancy, second trimester; E87.6 Hypokalemia; O99.282 Endocrine, nutritional and metabolic diseases complicating pregnancy, second trimester; Z79.82 Long term (current) use of aspirin; Z3A.22 22 weeks gestation of pregnancy
CPT/HCPCS: 36415; 76705; 80053; 81001; 82150; 83605; 83615; 83690; 84550; 85025; 87040; 87086; 87636; 88304; 96361; 96365; 96375; 96376; 99285

== ENCOUNTER → 2024-08-13 | Outpatient (CLI) | payer BC ==
[2024-08-13 19:58] LABS: Hepatitis B Surface Antigen Nonreactive (Nonreactive); Hepatitis C IgG Antibody Nonreactive (Nonreactive)
[2024-08-13 21:33] LABS: HIV 2 AB Non-Reactive (Non-Reactive); HIV AB P24 Non-Reactive (Non-Reactive); HIV P24 AG Non-Reactive (Non-Reactive)
== END | disposition home or self-care (01) ==
LOC: LABWHC1 16:07
DX: Z52.9 Donor of unspecified organ or tissue (principal)
CPT/HCPCS: 36415; 86780; 86790; 86803; 87340; 87390